=== PATIENT | female | born 1985 | race Caucasian/White ===

== ENCOUNTER 2022-12-05 10:26 | Emergency (ER) | payer BC, SELFPAY ==
[2022-12-05 11:12] LABS: Absolute Lymphocytes (CBC) 1.1 K/uL (0.7-4.9); Hematocrit 40.6 % (36.0-45.0); MCV 91.8 fL (80-100); MPV 8.3 fL (7.6-11.3); RBC Red Blood Cell Count 4.43 M/uL (3.86-4.86)
[2022-12-05] MEDS ORDERED: PROMETHAZINE INJ 25 MG/ML AMP ONE (11:14)
[2022-12-05] MEDS ORDERED: FAMOTIDINE 20 MG/2 ML VIAL IV ONE (11:14)
[2022-12-05] MEDS ORDERED: NA CHLORIDE 0.9% 1,000 ML ONE (11:14)
[2022-12-05 12:05] LABS: Albumin 3.6 g/dL (3.4-5.0); Bilirubin Total 0.8 mg/dL (0.2-1.0); Potassium 2.9 mEq/L (3.5-5.1); Protein, Total 6.5 g/dL (6.4-8.2)
[2022-12-05 12:17] LABS: Blood Morphology Comment NOT SEEN (NOT SEEN); Platelet Estimate ADEQ
[2022-12-05 12:32] LABS: Specific Gravity 1.019 (1.005-1.030)
[2022-12-05 12:38] LABS: Specific Gravity 1.019 (1.005-1.030); Urine Bacteria >50 /HPF (<20); Urine Bilirubin NEGATIVE (Negative); Urine Blood Negative (Negative); Urine Clarity Turbid (Clear); Urine Color Light-Yellow (Yellow); Urine Glucose NEGATIVE (Negative); Urine Mucus Slight /HPF (None Seen); Urine Protein TRACE (Negative); Urine RBC <5 /HPF (None Seen); Urine Urobilinogen Normal (Normal)
--- NOTE | 2022-12-05 12:53 | RAD REPORT ---
EXAM DESCRIPTION: CTAbdomen Pelvis W Contrast - 12/05/2022 12:41 pm CLINICAL HISTORY: Abdominal pain. ABD PAIN COMPARISON: No comparisons TECHNIQUE: Biphasic CT imaging of the abdomen and pelvis was performed with 100 ml non-ionic IV cont rast. All CT scans are performed using dose optimization technique as appropriate and may include automated exposure control or mA/KV adjustment according to patient size. FINDINGS: Multiple areas of ground-glass opacity seen in both lower lobes, greatest in the right [place] g base, nonspecific but may indicate a pulmonary infection. Liver size is slightly prominent with mild fatty infiltration. Tiny cyst is present anterior right lo be of the liver. No intra or extrahepatic biliary tree dilatation. Postsurgical changes affect the st omach. The spleen, pancreas, adrenal glands and kidneys are within normal limits. No bowel obstruction, free air, intra-abdominal free fluid or abscess. Nonvisualized appendix. Mild t o moderate stool is present throughout the colon. There is mild thickening of the rectosigmoid colon wall. Trace pelvic free fluid. No evidence of significant lymphadenopathy. No suspicious bony findings. IMPRESSION: Ill-defined opacities in both lung bases, greater in the right lung base favored to repr esent infection. Mild rectosigmoid colitis pattern is possible with small amount of fluid in the pelvis.
[2022-12-05] MEDS ORDERED: POTASSIUM 25 MEQ EFFERV TAB ONE (12:59)
--- NOTE | 2022-12-05 13:32 | ER ---
Nurse's Notes [facility] Name: Jodi Salguero Age: 37 yrs Sex: Female : 1985 Arrival Date: 12/05/2022 Time: 10:26 Bed 7 Private MD: Diagnosis: Pneumonia, unspecified organism;Vomiting;Hypokalemia Presentation: 12/05 10:44 Chief complaint: Patient states: Woke up this morning at 6:30am vomiting/dry heaving, nj1 unable to keep fluids down. Generalized abdominal pain. 10:44 Coronavirus screen: Vaccine status: Patient reports being unvaccinated. Ebola Screen: nj1 Patient denies travel to an Ebola-affected area in the 21 days before illness onset. Initial Sepsis Screen: Does the patient meet any 2 criteria? No. Patient's initial sepsis screen is negative. Does the patient have a suspected source of infection? No. Patient's initial sepsis screen is negative. Risk Assessment: Do you want to hurt yourself or someone else? Patient reports no desire to harm self or others. Onset of symptoms was December 05, 2022 at 06:30. 10:44 Method Of Arrival: Ambulatory [facility] 10:44 Acuity: RUTHY 3 [facility] Triage Assessment: 11:05 General: Appears in no apparent distress. comfortable, Behavior is calm, cooperative. db Pain: Complains of pain in abdomen. Neuro: Level of Consciousness is awake, alert, obeys commands, Oriented to person, place, time, situation. Respiratory: Airway is patent Respiratory effort is even, unlabored, Respiratory pattern is regular, symmetrical. GI: Reports lower abdominal pain, normal bowel habits, vomiting. Historical: - Allergies: 10:59 No Known Allergies; nj1 - PMHx: 10:59 None; nj1 - Immunization history:: Client reports having NOT received the Covid vaccine. - Social history:: Smoking status: Patient denies any tobacco usage or history of. Screenin:28 [facility] ED Fall Risk Assessment (Adult) History of falling in the last 3 months, db including since admission No falls in past 3 months (0 pts) Confusion or Disorientation No (0 pts) Intoxicated or Sedated No (0 pts) Impaired Gait No (0 pts) Mobility Assist Device Used No (0 pt) Altered Elimination No (0 pt) Score/Fall Risk Level 0 - 2 = Low Risk Oriented to surroundings, Maintained a safe environment. Abuse screen: Denies threats or abuse. Has been threatened or abused. Nutritional screening: No deficits noted. Tuberculosis screening: No symptoms or risk factors identified. Assessment: 11:26 Reassessment: Patient appears in no apparent distress at this time. Patient and/or db family updated on plan of care and expected duration. Pain level reassessed. Patient is alert, oriented x 3, equal unlabored respirations, skin warm/dry/pink. Respiratory: Airway is patent Respiratory effort is even, unlabored, Respiratory pattern is regular, symmetrical. GI: Abdomen is flat. 11:42 Reassessment: Patient appears in no apparent distress at this time. Patient and/or db family updated on plan of care and expected duration. Pain level reassessed. Patient is alert, oriented x 3, equal unlabored respirations, skin warm/dry/pink. Patient states feeling better. Patient states symptoms have improved. Neuro: Level of Consciousness is awake, alert, obeys commands, Oriented to person, place, time, situation. 13:36 Reassessment: Patient appears in no apparent distress at this time. Patient and/or db family updated on plan of care and expected duration. Pain level reassessed. Patient is alert, oriented x 3, equal unlabored respirations, skin warm/dry/pink. Patient states feeling better. 13:45 Reassessment:. rv Vital Signs: 10:44 BP 111 / 78; Pulse 74; Resp 28; Temp 97(TE); Pulse Ox 100% on R/A; Weight 77.11 kg; nj1 Height 6 ft. 0 in. ; Pain 8/10; 11:18 BP 113 / 63; Pulse 77; Pulse Ox 100% ; ap3 11:30 BP 94 / 63; Pulse 78; Resp 16; Pulse Ox 100% on R/A; db 12:30 BP 113 / 65; Pulse 76; Resp 16; Pulse Ox 100% on R/A; db 13:00 BP 105 / 63; Pulse 76; Resp 16; Pulse Ox 100% on R/A; db 10:44 Body Mass Index 23.06 (77.11 kg, 182.88 cm) nj1 10:44 Pain Scale: Adult nj1 ED Course: 10:27 Patient arrived in ED. am2 10:45 Esposito, James, DO is Attending Physician. ms3 10:58 Triage completed. nj1 10:59 Arm band placed on. nj1 11:01 Jinny Garcia, RN is Primary Nurse. db 11:03 Radiology exam delayed due to test not completed at this time. sj 11:05 CBC with Diff Sent. rs5 11:05 CMP Sent. rs5 11:05 Lipase Sent. rs5 11:15 Inserted saline lock: 22 gauge in left antecubital area, using aseptic technique. db 11:29 Patient has correct armband on for positive identification. Bed in low position. Call db light in reach. Side rails up X 1. Pulse ox on. NIBP on. 11:39 Lab(s) recollected, by me, sent to lab. db 11:54 Radiology exam delayed due to test not completed at this time. sj 12:43 CT Abd/Pelvis - IV Contrast Only In Process Unspecified. EDMS 13:43 No provider procedures requiring assistance completed. IV discontinued, intact, db bleeding controlled, No redness/swelling at site. Administered Medications: 11:08 Drug: Promethazine IM 25 mg Route: IM; Site: left deltoid; db 13:45 Follow up: Response: No adverse reaction db 11:15 Drug: NS 0.9% IV 1000 ml Route: IV; Rate: 1 bolus; Site: left antecubital; db 13:45 Follow up: Response: No adverse reaction; IV Status: Completed infusion; IV Intake: db 1000ml 11:15 Drug: Famotidine IVP 20 mg Route: IVP; Site: left antecubital; db 13:45 Follow up: Response: No adverse reaction db 12:55 Drug: Potassium PO Effervescent Tablet 50 mEq Route: PO; ko1 13:45 Follow up: Response: No adverse reaction db Medication: 13:43 VIS not applicable for this client. db Intake: 13:45 IV: 1000ml; Total: 1000ml. db Outcome: 13:31 Discharge ordered by . ms3 13:42 Discharged to home ambulatory. db 13:42 Condition: stable 13:42 Discharge instructions given to patient, Instructed on discharge instructions, follow up and referral plans. Prescriptions given X 1. 13:45 Patient left the ED. db Signatures: Dispatcher [employer] Marine Leos Amanda am2 Malena Corrales, RN RN ap3 Thomas Soares, RN RN rv Cate, James, DO DO ms3 Lizeth Henriquez, RN RN ko1 Jinny Garcia, RN RN db Luke Gardner rs5 Autumn Nance, RN RN nj1
--- NOTE | 2022-12-05 13:32 | EDPHYS ---
Physician Documentation [facility] Name: Jodi Salguero Age: 37 yrs Sex: Female : 1985 Arrival Date: 12/05/2022 Time: 10:26 Bed 7 Private MD: ED Physician James Esposito HPI: 12/05 10:50 This 37 yrs old Female presents to ER via Unassigned with complaints of ms3 Nausea/Vomiting, Near Syncope, tingling in extremities. 10:50 37-year-old female with no past medical history presents for vomiting that began at ms3 630. Patient states she is currently having 8/10 generalized aching abdominal pain. Patient denies alleviating or inciting factors. Patient states she took Zofran at 7 AM without relief. Patient states she messed up her control for the last week and could possibly be .. Historical: - Allergies: 10:59 No Known Allergies; nj1 - PMHx: 10:59 None; nj1 - Immunization history:: Client reports having NOT received the Covid vaccine. - Social history:: Smoking status: Patient denies any tobacco usage or history of. ROS: 10:50 Constitutional: Negative for fever, and chills. Neck: Negative for injury, pain, and ms3 swelling, Cardiovascular: Negative for chest pain, and palpitations. Respiratory: Negative for shortness of breath, cough, wheezing, and pleuritic chest pain. 10:50 Skin: Negative for injury, rash, and discoloration. 10:50 Abdomen/GI: Positive for abdominal pain, nausea and vomiting. 10:50 All other systems are negative. Exam: 10:50 Constitutional: This is a well developed, well nourished patient who is awake, alert, ms3 and in no acute distress. Head/Face: Normocephalic, atraumatic. Neck: Trachea midline, no cervical lymphadenopathy. Supple, full range of motion without nuchal rigidity, or vertebral point tenderness. No Meningismus. Chest/axilla: Normal chest wall appearance and motion. Nontender with no deformity. Cardiovascular: Regular rate and rhythm with a normal S1 and S2. No gallops, murmurs, or rubs. Normal PMI, no JVD. No pulse deficits. Respiratory: Lungs have equal breath sounds bilaterally, clear to auscultation and percussion. No rales, rhonchi or wheezes noted. No increased work of breathing, no retractions or nasal flaring. Abdomen/GI: Soft, non-tender, with normal bowel sounds. No distension or tympany. No guarding or rebound. No evidence of tenderness throughout. Skin: Warm, dry with normal turgor. Normal color with no rashes, no lesions, and no evidence of cellulitis. MS/ Extremity: Pulses equal, no cyanosis. Neurovascular intact. Full, normal range of motion. Neuro: Awake and alert, GCS 15, oriented to person, place, time, and situation. Cranial nerves II-XII grossly intact. Motor strength 5/5 in all extremities. Sensory grossly intact. Cerebellar exam normal. Normal gait. Vital Signs: 10:44 BP 111 / 78; Pulse 74; Resp 28; Temp 97(TE); Pulse Ox 100% on R/A; Weight 77.11 kg; nj1 Height 6 ft. 0 in. ; Pain 8/10; 11:18 BP 113 / 63; Pulse 77; Pulse Ox 100% ; ap3 11:30 BP 94 / 63; Pulse 78; Resp 16; Pulse Ox 100% on R/A; db 12:30 BP 113 / 65; Pulse 76; Resp 16; Pulse Ox 100% on R/A; db 13:00 BP 105 / 63; Pulse 76; Resp 16; Pulse Ox 100% on R/A; db 10:44 Body Mass Index 23.06 (77.11 kg, 182.88 cm) nj1 10:44 Pain Scale: Adult nj1 MDM: 10:49 Patient medically screened. ms3 10:50 Differential diagnosis: Nonspecific abd pain, gastritis, pancreatitis, viral ms3 gastroenteritis, Bowel obstruction. 14:44 Data reviewed: vital signs, nurses notes, lab test result(s), radiologic studies, and ms3 as a result, I will discharge patient. I considered the following discharge prescriptions or medication management in the emergency department Medications were administered in the Emergency Department. See MAR. Historians other than the Patient: Spouse/Significant Other: Patient's . Counseling: I had a detailed discussion with the patient and/or guardian regarding: the historical points, exam findings, and any diagnostic results supporting the discharge/admit diagnosis, lab results, radiology results, the need for outpatient follow up, to return to the emergency department if symptoms worsen or persist or if there are any questions or concerns that arise at home. Response to treatment: the patient's symptoms have markedly improved after treatment, patient is well hydrated. and as a result, I will discharge patient. Special discussion: Based on the patient's Hx, exam, and Dx evaluation, there is no indication for emergent surgery or inpatient Tx. It is understood by the patient/guardian that if the Sx's persist or worsen they need to return immediately for re-evaluation. 12/05 10:50 Order name: CBC with Diff; Complete Time: 12:34 ms3 12/05 10:50 Order name: CMP; Complete Time: 12:34 ms3 12/05 10:50 Order name: Lipase; Complete Time: 12:34 ms3 12/05 10:50 Order name: Test, Urine; Complete Time: 12:34 ms3 12/05 10:50 Order name: Urinalysis w/ reflexes; Complete Time: 12:39 ms3 12/05 11:16 Order name: Manual Differential; Complete Time: 12:34 EDMS 12/05 10:50 Order name: CT Abd/Pelvis - IV Contrast Only; Complete Time: 13:22 ms3 12/05 10:50 Order name: IV Saline Lock; Complete Time: 11:18 ms3 12/05 10:50 Order name: Labs collected and sent; Complete Time: 11:05 ms3 12/05 11:16 Order name: Labs - recollect needed: recollect green top; Complete Time: 11:42 bd Administered Medications: 11:08 Drug: Promethazine IM 25 mg Route: IM; Site: left deltoid; db 13:45 Follow up: Response: No adverse reaction db 11:15 Drug: NS 0.9% IV 1000 ml Route: IV; Rate: 1 bolus; Site: left antecubital; db 13:45 Follow up: Response: No adverse reaction; IV Status: Completed infusion; IV Intake: db 1000ml 11:15 Drug: Famotidine IVP 20 mg Route: IVP; Site: left antecubital; db 13:45 Follow up: Response: No adverse reaction db 12:55 Drug: Potassium PO Effervescent Tablet 50 mEq Route: PO; ko1 13:45 Follow up: Response: No adverse reaction db Disposition: 16:21 Chart complete. ms3 Disposition Summary: 12/05/22 13:31 Discharge Ordered Location: Home ms3 Condition: Stable ms3 Diagnosis - Pneumonia, unspecified organism ms3 - Vomiting ms3 - Hypokalemia ms3 Followup: ms3 - With: Private Physician - When: 2 - 3 days - Reason: Recheck today's complaints Discharge Instructions: - Discharge Summary Sheet ms3 - Community-Acquired Pneumonia, Adult ms3 - Hypokalemia ms3 - Vomiting, Adult ms3 Forms: - Medication Reconciliation Form ms3 - Thank You Letter ms3 - Antibiotic Education ms3 - Prescription Opioid Use ms3 Prescriptions: - promethazine 25 mg Oral Tablet - take 1 tablet by ORAL route every 6 hours As needed; 20 tablet; Refills: 0, ms3 Product Selection Permitted Signatures: Dispatcher [employer] Angeline Eng Marcus, DO ms3 Lizeth Henriquez, RN RN ko1 Jinny Garcia RN RN db Autumn Nance RN RN nj1
[2022-12-05 14:10] VITALS: TEMP 97; O2SAT 100
[2022-12-05 14:17] VITALS: BP 105/63
== END 2022-12-05 13:45 | disposition home or self-care (01) ==
LOC: ER 10:26
DX: J18.9 Pneumonia, unspecified organism (principal); E87.6 Hypokalemia
CPT/HCPCS: 96361; 85025; 81001; 36415; 81025; 83690; 80053; 74177; 96372; 96374; 99284; Q9967; J2550; J7030

== ENCOUNTER 2024-05-02 18:21 | Emergency (ER) | payer BC ==
[2024-05-02] MEDS ORDERED: MORPHINE 4 MG/ML SYR ONE ×2 (18:49→20:35)
[2024-05-02] MEDS ORDERED: ONDANSETRON 4 MG/2 ML VIAL ONE (18:49)
[2024-05-02 19:05] LABS: Absolute Basophils 0.1 K/uL (0-0.5); Absolute Eosinophils 0.5 K/uL (0-0.5); Absolute Lymphocytes (CBC) 4.8 K/uL (0.7-4.9); Absolute Monocytes 0.5 K/uL (0.1-1.3); Absolute Neutrophil 3.2 K/uL (1.8-8.0); Basophils % 0.7 % (0-1.3); Eosinophils % 5.5 % (0-4.4); Hematocrit 36.2 % (36.0-45.0); Hemoglobin 12.4 g/dL (12.0-15.0); Lymphocytes % 53.2 % (15.3-44.8); MCH 30.8 pg (27.0-35.0); MCHC 34.3 g/dL (32.0-36.0); MPV 7.8 fL (7.6-11.3); Monocytes % 5.4 % (3.3-12.3); Neutrophils % 35.2 % (41.7-73.7); Nucleated Red Blood Cells % 0.2 % (0-0); Platelets 217 thou/uL (152-406); RBC Red Blood Cell Count 4.02 M/uL (3.86-4.86)
[2024-05-02 19:09] LABS: PT Prothrombin Time 10.7 SECONDS (9.4-12.5); PTT, Activated Partial Thromb 31.3 SECONDS (24.3-36.9); Protime INR 0.95
[2024-05-02 19:29] LABS: ALT/SGPT 16 U/L (13-56); Albumin 3.9 g/dL (3.4-5.0); Albumin/Globulin Ratio 1.3 (1.1-1.8); Alkaline Phosphatase 46 U/L (45-117); Anion Gap 9.8 mEq/L (5.0-15.0); BUN Blood Urea Nitrogen 21 mg/dL (7-18); Bicarbonate 28 mEq/L (21-32); Bilirubin Total 0.2 mg/dL (0.2-1.0); Globulin 2.9 g/dL (2.3-3.5); Glomerular Filtration Rate 115 ml/min (=/>90); Glucose Level 101 mg/dL (74-106); Potassium 3.8 mEq/L (3.5-5.1); Protein, Total 6.8 g/dL (6.4-8.2); Sodium Level 139 mEq/L (136-145)
--- NOTE | 2024-05-02 19:30 | RAD REPORT ---
Procedure: Chest Single View History: Blurred vision Comparison: none Findings: The lungs appear clear of acute infiltrate. No significant pleural effusion noted. The heart is normal size. IMPRESSION: No acute abnormality is displayed.
[2024-05-02 19:31] LABS: AST/SGOT < 10 U/L (15-37); Bilirubin Direct < 0.2 mg/dL (0-0.2); Troponin High Sensitivity < 3.0 pg/mL (<58.9)
[2024-05-02 19:50] LABS: Band Neutrophils 2 % (0-1); Blood Morphology Comment NOT SEEN (NOT SEEN); Differential Total Cells Count 100; Eosinophils 5 % (0-3); Lymphocytes 52 % (15-42); Monocytes 3 % (0-10); Platelet Estimate ADEQ; Segmented Neutrophils 36 % (40-80)
--- NOTE | 2024-05-02 20:24 | RAD REPORT ---
EXAM: CT brain without contrast HISTORY: Blurred vision COMPARISON: None TECHNIQUE: Multiple contiguous axial images were obtained and a CT of the brain without contrast.. Sagittal and coronal reconstruction performed. Automated exposure control, adjustment of the mA and/or kV according to patient size, and/or iterative reconstruction. Unless otherwise specified, incidental f indings do not require dedicated imaging follow-u FINDINGS: An intracranial bleed is not seen Ventricles are normal caliber No extra-axial fluid collection noted No significant hypodensity within the brain No fluid within the visualized sinuses or mastoids noted. IMPRESSION: No acute intracranial abnormality noted. If the patient's symptoms persist MRI of the brain would be recommended.
--- NOTE | 2024-05-02 20:32 | RAD REPORT ---
EXAMINATION: Neck Angio CLINICAL INDICATION: Blurred vision TECHNIQUE: Axial CT images were obtained from the aortic arch to the skull base after intravenous adm inistration of 100 cc Isovue-370 utilizing angiographic protocol. Multiplanar reformats, as well as 3D post-processing (maximum intensity projection images, volume rendered images and/or shaded surface rendered images) were generated and reviewed. One or more of the following dose reduction techniques were used: Automated exposure control, adjustment of the mA and/or kV according to patient size, and/or iterative reconstruction. Unless otherwise specified, incidental findings do not require dedicated imaging follow-up. COMPARISON: No prior exam. FINDINGS: The visualized aortic arch and great vessels do not demonstrate a significant abnormality Common carotid, internal carotid and external carotid arteries unremarkable No significant stenosis noted. A dissection is not seen. Methods for NASCET criteria: Mild stenosis, 0% to 49%; Moderate stenosis 50% to 69%; Severe stenosis, 70% to 99% IMPRESSION: No acute vascular abnormality displayed
--- NOTE | 2024-05-02 20:32 | RAD REPORT ---
EXAMINATION: CTA HEAD CLINICAL INDICATION: Blurred vision TECHNIQUE: Axial CT images were obtained through the head after 100 cc Isovue-370 intravenous contras t utilizing angiographic protocol with 3D post-processing (maximum intensity projection images, volume rendered images and/or shaded surface rendered images). One or more of the following dose red uction techniques were used: Automated exposure control, adjustment of the mA and/or kV according to patient size, and/or iterative reconstruction. Unless otherwise specified, incidental findings do not require dedicated imaging follow-up. COMPARISON: None FINDINGS: Distal internal carotid, basilar, anterior cerebral, middle cerebral and posterior cerebral arteries do not demonstrate a significant stenosis An aneurysm not noted. No large vessel occlusion IMPRESSION: No acute vascular abnormality displayed
[2024-05-02] MEDS ORDERED: METOCLOPRAMIDE 10 MG/2mL INJ ONE (20:35)
[2024-05-02] MEDS ORDERED: NA CHLORIDE 0.9% 1,000 ML ONE (23:03)
[2024-05-02] MEDS ORDERED: HYDROCODONE/APAP 5/325 MG TAB ONE (23:03)
--- NOTE | 2024-05-02 23:48 | EDPHYS ---
Physician Documentation [facility] Name: Jodi Salguero Age: 38 yrs Sex: Female : 1985 Arrival Date: 05/02/2024 Time: 18:21 Bed 16 Private MD: ED Physician Ab Yoon HPI: 05/02 18:54 This 38 yrs old Female presents to ER via Wheelchair with complaints of Blurred Vision. rt 18:54 Patient presents to the ED with blurred vision. About 2 days ago, the patient had rt exploratory surgery on her right knee. Patient states that about 2 today, she had an acute onset of blurred vision specifically in her left eye with change in the colors. Patient states that this happened when she was outside. The patient states that her pupils were unequal at that time, that her left pupil was dilated compared to the right. States that that has significantly improved, but her vision is still somewhat blurred in the left eye not back to baseline. Denies headache. She does report pain to her right knee. Denies other acute complaints, symptoms are moderate in severity, no other aggravating relieving factors.. 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 - Infectious Disease History:: Denies. - Social history:: Smoking status: Reported history of juuling and/or vaping. - Family history:: not pertinent. ROS: 18:54 Constitutional: Negative for fever, chills, and weight loss, Cardiovascular: Negative rt for chest pain, palpitations, and edema, Respiratory: Negative for shortness of breath, cough, wheezing, and pleuritic chest pain, Abdomen/GI: Negative for abdominal pain, nausea, vomiting, diarrhea, and constipation, MS/Extremity: Negative for injury and deformity, Skin: Negative for injury, rash, and discoloration, Neuro: Negative for headache, weakness, numbness, tingling, and seizure, 18:54 Eyes: Positive for blurry vision, Negative for pain, 23:39 All other systems are negative, sp4 Exam: 18:54 Constitutional: This is a well developed, well nourished patient who is awake, alert, rt and in no acute distress. Head/Face: Normocephalic, atraumatic. Chest/axilla: Normal chest wall appearance and motion. Nontender with no deformity. No lesions are appreciated. Cardiovascular: Regular rate and rhythm with a normal S1 and S2. No gallops, murmurs, or rubs. Normal PMI, no JVD. No pulse deficits. Respiratory: Lungs have equal breath sounds bilaterally, clear to auscultation and percussion. No rales, rhonchi or wheezes noted. No increased work of breathing, no retractions or nasal flaring. Abdomen/GI: Soft, non-tender, with normal bowel sounds. No distension or tympany. No guarding or rebound. No evidence of tenderness throughout. Skin: Warm, dry with normal turgor. Normal color with no rashes, no lesions, and no evidence of cellulitis. MS/ Extremity: Pulses equal, no cyanosis. Neurovascular intact. Full, normal range of motion. Neuro: Awake and alert, GCS 15, oriented to person, place, time, and situation. Cranial nerves II-XII grossly intact. Motor strength 5/5 in all extremities. Sensory grossly intact. Cerebellar exam normal. Normal gait. 18:54 Eyes: Extraocular muscles intact, pupils equal round reactive to light, conjunctiva normal. 18:54 ECG was reviewed by the Attending Physician. 23:39 Eyes: Normal bilateral equal and reactive pupils, normal bilateral funduscopy, no sign sp4 of central retinal artery occlusion, normal bilateral extraocular movement, normal bilateral visual field testing. Vital Signs: 18:38 BP 129 / 68; Pulse 70; Resp 19; Temp 98.1; Pulse Ox 100% ; Weight 78.02 kg; Height 6 ap3 ft. 0 in. ; 19:30 BP 99 / 86; Pulse 61; Resp 17; Pulse Ox 99% ; cp4 20:30 BP 116 / 72; Pulse 79; Resp 18; Pulse Ox 99% ; cp4 21:30 BP 94 / 51; Pulse 71; Resp 18; Pulse Ox 99% ; cp4 22:30 BP 94 / 53; Pulse 83; Resp 18; Pulse Ox 99% ; cp4 23:30 BP 119 / 76; Pulse 85; Resp 18; Pulse Ox 99% ; cp4 18:38 Body Mass Index 23.33 (78.02 kg, 182.88 cm) ap3 NIH Stroke Scale Scores: 05/03 04:50 NIHSS Score: 0 sp4 Britt Coma Score: 05/02 23:39 Eye Response: spontaneous(4). Motor Response: obeys commands(6). Verbal Response: sp4 oriented(5). Total: 15. MDM: 18:33 Patient medically screened. rt 05/03 04:50 Differential Diagnosis altered mental status, sepsis, flu. Data reviewed: vital signs, sp4 nurses notes, lab test result(s), radiologic studies, CT scan. Consideration of Admission/Observation Escalation of care including admission/observation considered. Management of patient was discussed with the following:. ED course: On evaluation patient has no blurry vision, stable for discharge home at this time.. 05/02 18:42 Order name: Basic Metabolic Panel; Complete Time: 19:51 rt 05/02 18:42 Order name: CBC with Diff; Complete Time: 19:51 rt 05/02 18:42 Order name: Hepatic Function; Complete Time: 19:51 rt 05/02 18:42 Order name: High Sensitivity Troponin; Complete Time: 19:51 rt 05/02 18:42 Order name: Protime (+inr); Complete Time: 19:30 rt 05/02 18:42 Order name: Ptt, Activated; Complete Time: 19:30 rt 05/02 19:07 Order name: Manual Differential; Complete Time: 19:51 EDMS 05/02 18:42 Order name: CT Neck Angio; Complete Time: 23:38 rt 05/02 18:42 Order name: Stroke CXR 1 View; Complete Time: 19:30 rt 05/02 18:42 Order name: CT Head Brain wo Cont; Complete Time: 23:38 rt 05/02 20:12 Order name: Head angio; Complete Time: 23:38 EDMS 05/02 18:42 Order name: Accucheck; Complete Time: 18:51 rt 05/02 18:42 Order name: Cardiac monitoring; Complete Time: 18:51 rt 05/02 18:42 Order name: EKG - Nurse/Tech; Complete Time: 18:51 rt 05/02 18:42 Order name: IV Saline Lock; Complete Time: 18:57 rt 05/02 18:42 Order name: Labs collected and sent; Complete Time: 18:57 rt 05/02 18:42 Order name: NPO; Complete Time: 18:51 rt 05/02 18:42 Order name: O2 Per Protocol; Complete Time: 18:42 rt 05/02 18:42 Order name: O2 Sat Monitoring; Complete Time: 18:42 rt 05/02 18:42 Order name: Stroke Swallow Screen; Complete Time: 19:49 rt EC/11 18:54 Rate is 54 beats/min. Rhythm is regular, Sinus bradycardia with No ectopy. QRS Covert is rt Normal. KS interval is normal. QRS interval is normal. QT interval is normal. No Q waves. T waves are Normal. No ST changes noted. Interpreted by me. Administered Medications: 18:52 Drug: Ondansetron IVP 4 mg IVP once; over 2 minutes Route: IVP; Site: left antecubital; mb9 19:10 Follow up: Response: No adverse reaction cp4 18:59 Drug: morphine IVP or IV 4 mg IVP once over 4 mins Route: IVP; Infused Over: 4 mins; mb9 Site: left antecubital; 19:10 Follow up: Response: No adverse reaction; Pain is decreased cp4 20:38 Drug: morphine IVP or IV 4 mg IVP once over 4 mins Route: IVP; Infused Over: 4 mins; cp4 Site: left antecubital; 21:10 Follow up: Response: No adverse reaction; Pain is decreased cp4 20:38 Drug: metoCLOPramide IVP 10 mg IVP once; over 1 to 2 minutes Route: IVP; Site: left cp4 antecubital; 21:10 Follow up: Response: No adverse reaction cp4 23:08 Drug: HYDROcodone-acetaminophen PO 5 mg-325 mg 2 tabs PO once Route: PO; cp4 23:48 Follow up: Response: No adverse reaction; Pain is decreased cp4 23:08 Drug: NS 0.9% IV 1000 ml IV at 1000 ml once; to be given as a bolus over 60 minutes cp4 Route: IV; Rate: 1000 ml; Site: left antecubital; 23:48 Follow up: IV Status: Completed infusion cp4 Disposition Summary: 05/02/24 23:47 Discharge Ordered Notes: Location: Home sp4 Problem: new sp4 Symptoms: have improved sp4 Condition: Stable sp4 Diagnosis - Acute blurry vision left eye, Acute post operative right knee pain sp4 Followup: sp4 - With: Jerrod Shipley MD - When: 7 - 10 days - Reason: Recheck today's complaints Discharge Instructions: - Discharge Summary Sheet sp4 - Blurred Vision, Adult sp4 Forms: - Patient Portal Instructions sp4 NIH Stroke Scale - NIH Stroke Score Date: 05/03/2024 Time: 04:50 Total Score = 0 10. Dysarthria (speech clarity - read or repeat words) - 0(Normal) 11. Extinction and Inattention (visual/tactile/auditory/spatial/personal) - 0(No abnormality) 1a. Level of Consciousness (LOC) - 0(Alert) 1b. Level of Consciousness (LOC) (Month \T\ Age) - 0(Both) 1c. LOC Commands (Open \T\ Closes Eyes/Vision Specialist) - 0(Both) 2. Best Gaze (Lateral Gaze Paresis) - 0(Normal) 3. Visual Field Loss - 0(No visual loss) 4. Facial Palsy - 0(Normal) 5a. Left Arm: Motor (10-second hold) - 0(No drift) 5b. Right Arm: Motor (10-second hold) - 0(No drift) 6a. Left Leg: Motor (5-second hold - always test supine) - 0(No drift) 6b. Right Leg: Motor (5-second hold - always test supine) - 0(No drift) 7. Limb Ataxia (finger/nose \T\ heel/grier - test with eyes open) - 0(Absent) 8. Sensory Loss (pinprick arms/legs/face) - 0(Normal) 9. Best Language: Aphasia (description/naming/reading) - 0(No aphasia) Initials: sp4 Signatures: Dispatcher [employer] EDMS Malena Corrales RN RN ap3 Shama Arrieta RN RN mb9 Ethan Harvey MD MD rt Luke Mcdaniel RN RN rs5 Ab Yoon MD MD sp4 Violeta Valiente cp4 Corrections: (The following items were deleted from the chart) 18:42 18:42 Neck Angio+CT.RAD.BRZ ordered. EDMS EDMS 18:42 18:42 Chest Single View+RAD.RAD.BRZ ordered. EDMS EDMS 18:42 18:42 Head Brain Wo Cont+CT.RAD.BRZ ordered. EDMS EDMS
--- NOTE | 2024-05-02 23:48 | ER ---
Nurse's Notes [facility] [place] [place] Name: Jodi Salguero Age: 38 yrs Sex: Female : 1985 Arrival Date: 05/02/2024 Time: 18:21 Bed 16 Private MD: Diagnosis: Acute blurry vision left eye, Acute post operative right knee pain Presentation: 05/02 18:38 Chief complaint: Patient states: she started having blurred vision in the left eye and ap3 noticed that her pupils were different sizes at approx 1230 this afternoon. patient also complains that at 1700 she started feeling "shaky" and nauseated. patient had a recently right knee procedure done two days ago. Coronavirus screen: At this time, the client does not indicate any symptoms associated with coronavirus-19. Ebola Screen: No symptoms or risks identified at this time. Initial Sepsis Screen: Does the patient meet any 2 criteria? No. Patient's initial sepsis screen is negative. Does the patient have a suspected source of infection? No. Patient's initial sepsis screen is negative. Risk Assessment: Do you want to hurt yourself or someone else? Patient reports no desire to harm self or others. Onset of symptoms was May 02, 2024 at 12:30. Transition of care: patient was not received from another setting of care. 18:38 Method Of Arrival: Wheelchair ap3 18:38 Acuity: RTUHY 3 ap3 Triage Assessment: 18:41 General: Appears distressed, Behavior is anxious. Pain: Complains of pain in right ap3 knee. EENT: Reports blurred vision in iris of left eye. EENT: Neuro: Level of Consciousness is awake, alert, obeys commands, Oriented to person, place, time, situation, Appropriate for age. Cardiovascular: Patient's skin is warm and dry. Respiratory: Airway is patent Respiratory effort is even, unlabored, Respiratory pattern is regular, symmetrical. 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 - Infectious Disease History:: Denies. - Social history:: Smoking status: Reported history of juuling and/or vaping. - Family history:: not pertinent. Screenin:26 [facility] ED Fall Risk Assessment (Adult) History of falling in the last 3 months, rs5 including since admission No falls in past 3 months (0 pts) Confusion or Disorientation No (0 pts) Intoxicated or Sedated No (0 pts) Impaired Gait No (0 pts) Mobility Assist Device Used No (0 pt) Altered Elimination No (0 pt) Score/Fall Risk Level 0 - 2 = Low Risk Oriented to surroundings, Maintained a safe environment. 18:41 Abuse screen: Denies threats or abuse. Nutritional screening: No deficits noted. ap3 Tuberculosis screening: No symptoms or risk factors identified. 19:47 Louisa Swallow Protocol Exclusion Criteria: Exclusion Criteria Result: Proceed Brief cp4 Cognitive Screen What is your name? Normal, Where are you right now? Normal, What year is it? Normal. Oral Mechanism Examination Facial Symmetry: Normal, Motion: Normal, Lip Closure: Normal, 3 oz Water Swallow Challenge: Pt able to drink all water without stopping, coughing, choking or throat clearing: Yes Result: PASS MD Notified: Ethan Harvey MD. Assessment: 19:47 General: Appears in no apparent distress. uncomfortable, Behavior is calm, cooperative, cp4 appropriate for age. Pain: Denies pain. Neuro: Level of Consciousness is awake, alert, obeys commands, Oriented to person, place, time, situation. Cardiovascular: Patient's skin is warm and dry. Respiratory: Airway is patent Respiratory effort is even, unlabored. GI: No signs and/or symptoms were reported involving the gastrointestinal system. : No signs and/or symptoms were reported regarding the genitourinary system. EENT: Reports blurred vision in iris of left eye and right leg. Derm: No signs and/or symptoms reported regarding the dermatologic system. Musculoskeletal: No signs and/or symptoms reported regarding the musculoskeletal system. 20:30 Reassessment: Patient appears in no apparent distress at this time. Patient and/or cp4 family updated on plan of care and expected duration. Pain level reassessed. Patient is alert, oriented x 3, equal unlabored respirations, skin warm/dry/pink. 21:30 Reassessment: Patient appears in no apparent distress at this time. Patient and/or cp4 family updated on plan of care and expected duration. Pain level reassessed. Patient is alert, oriented x 3, equal unlabored respirations, skin warm/dry/pink. 22:30 Reassessment: Patient appears in no apparent distress at this time. Patient and/or cp4 family updated on plan of care and expected duration. Pain level reassessed. Patient is alert, oriented x 3, equal unlabored respirations, skin warm/dry/pink. 23:08 Reassessment: Patient request to take only on norco at this time. States she doesn't cp4 want to upset her stomach. Provider notified. Vital Signs: 18:38 BP 129 / 68; Pulse 70; Resp 19; Temp 98.1; Pulse Ox 100% ; Weight 78.02 kg; Height 6 ap3 ft. 0 in. ; 19:30 BP 99 / 86; Pulse 61; Resp 17; Pulse Ox 99% ; cp4 20:30 BP 116 / 72; Pulse 79; Resp 18; Pulse Ox 99% ; cp4 21:30 BP 94 / 51; Pulse 71; Resp 18; Pulse Ox 99% ; cp4 22:30 BP 94 / 53; Pulse 83; Resp 18; Pulse Ox 99% ; cp4 23:30 BP 119 / 76; Pulse 85; Resp 18; Pulse Ox 99% ; cp4 18:38 Body Mass Index 23.33 (78.02 kg, 182.88 cm) ap3 Brantley Coma Score: 23:39 Eye Response: spontaneous(4). Motor Response: obeys commands(6). Verbal Response: sp4 oriented(5). Total: 15. NIH Stroke Scale Scores: 05/03 04:50 NIHSS Score: 0 sp4 ED Course: 05/02 18:23 Patient arrived in ED. mg5 18:26 No provider procedures requiring assistance completed. rs5 18:33 Ethan Harvey MD is Attending Physician. rt 18:38 Luke Mcdaniel, FREDDY is Primary Nurse. rs5 18:40 Triage completed. ap3 18:42 Arm band placed on right wrist. ap3 18:42 Patient has correct armband on for positive identification. Bed in low position. Call ap3 light in reach. Side rails up X2. Warm blanket given. 18:50 EKG done, by ED staff, reviewed by Ethan Harvey MD. mb9 18:57 Basic Metabolic Panel Sent. em1 18:57 CBC with Diff Sent. em1 18:57 Hepatic Function Sent. em1 18:57 High Sensitivity Troponin Sent. em1 18:57 Protime (+inr) Sent. em1 18:57 Ptt, Activated Sent. em1 18:58 Initial lab(s) drawn, by me, sent to lab. Inserted saline lock: 22 gauge in left em1 antecubital area, using aseptic technique. Blood collected. Flushed with 10 mL NS Missed attempt(s): 20 gauge in left forearm. Bleeding controlled, band aid applied, catheter tip intact. 19:19 Stroke CXR 1 View In Process Unspecified. EDMS 20:15 CT Neck Angio In Process Unspecified. EDMS 20:15 CT Head Brain wo Cont In Process Unspecified. EDMS 20:15 Head angio In Process Unspecified. EDMS 20:20 Attending Physician role handed off by Ethan Harvey MD sp4 20:20 Ab Yoon MD is Attending Physician. sp4 23:46 Jerrod Shipley MD is Referral Physician. sp4 05/03 00:02 Provided Education on: blurred vision. cp4 00:02 intact, bleeding controlled, No redness/swelling at site. Pressure dressing applied. cp4 Administered Medications: 05/02 18:52 Drug: Ondansetron IVP 4 mg IVP once; over 2 minutes Route: IVP; Site: left antecubital; mb9 19:10 Follow up: Response: No adverse reaction cp4 18:59 Drug: morphine IVP or IV 4 mg IVP once over 4 mins Route: IVP; Infused Over: 4 mins; mb9 Site: left antecubital; 19:10 Follow up: Response: No adverse reaction; Pain is decreased cp4 20:38 Drug: morphine IVP or IV 4 mg IVP once over 4 mins Route: IVP; Infused Over: 4 mins; cp4 Site: left antecubital; 21:10 Follow up: Response: No adverse reaction; Pain is decreased cp4 20:38 Drug: metoCLOPramide IVP 10 mg IVP once; over 1 to 2 minutes Route: IVP; Site: left cp4 antecubital; 21:10 Follow up: Response: No adverse reaction cp4 23:08 Drug: HYDROcodone-acetaminophen PO 5 mg-325 mg 2 tabs PO once Route: PO; cp4 23:48 Follow up: Response: No adverse reaction; Pain is decreased cp4 23:08 Drug: NS 0.9% IV 1000 ml IV at 1000 ml once; to be given as a bolus over 60 minutes cp4 Route: IV; Rate: 1000 ml; Site: left antecubital; 23:48 Follow up: IV Status: Completed infusion cp4 Medication: 18:30 VIS not applicable for this client. rs5 Outcome: 23:47 Discharge ordered by . sp4 05/03 00:02 Discharged to home ambulatory, with crutches, cp4 Condition: stable Discharge instructions given to patient, Instructed on discharge instructions, follow up and referral plans. Demonstrated understanding of instructions, follow-up care, 00:03 Patient left the ED. cp4 NIH Stroke Scale - NIH Stroke Score Date: 05/03/2024 Time: 04:50 Total Score = 0 10. Dysarthria (speech clarity - read or repeat words) - 0(Normal) 11. Extinction and Inattention (visual/tactile/auditory/spatial/personal) - 0(No abnormality) 1a. Level of Consciousness (LOC) - 0(Alert) 1b. Level of Consciousness (LOC) (Month \\T\\ Age) - 0(Both) 1c. LOC Commands (Open \\T\\ Closes Eyes/Motion Study Analyst) - 0(Both) 2. Best Gaze (Lateral Gaze Paresis) - 0(Normal) 3. Visual Field Loss - 0(No visual loss) 4. Facial Palsy - 0(Normal) 5a. Left Arm: Motor (10-second hold) - 0(No drift) 5b. Right Arm: Motor (10-second hold) - 0(No drift) 6a. Left Leg: Motor (5-second hold - always test supine) - 0(No drift) 6b. Right Leg: Motor (5-second hold - always test supine) - 0(No drift) 7. Limb Ataxia (finger/nose \\T\\ heel/grier - test with eyes open) - 0(Absent) 8. Sensory Loss (pinprick arms/legs/face) - 0(Normal) 9. Best Language: Aphasia (description/naming/reading) - 0(No aphasia) Initials: sp4 Signatures: Dispatcher [employer] Josafat Armendariz em1 Malena Corrales RN RN ap3 Shama Arrieta RN RN mb9 Ethan Harvey MD MD rt Luke Mcdaniel RN RN rs5 Ab Yoon MD MD sp4 [place] mg5 Violeta Valiente cp4
[2024-05-03 04:09] VITALS: TEMP 98.1
[2024-05-03 04:11] VITALS: O2SAT 99
[2024-05-03 04:15] VITALS: BP 119/76
== END 2024-05-03 00:03 | disposition home or self-care (01) ==
LOC: ER 18:21
DX: H53.8 Other visual disturbances (principal); G89.18 Other acute postprocedural pain; Z98.890 Other specified postprocedural states
CPT/HCPCS: 93005; 85025; 80048; 36415; 85610; 80076; 85730; 84484; 70450; 70496; 70498; 71045; Q9967; J2765; J2405; J7030